=== PATIENT | female | born 1980 | race Caucasian/White ===

== ENCOUNTER → 2018-11-17 12:30 | Day surgery (SDC) | payer OTHER ==
[~2018-11-17 12:30] MED LIST: Buffered Lidocaine 1% SYRIN* 1 ML/SYRINGE INTRADERM ONE; Bupivacaine 0.5%* 50 ML VIAL ONE; Lactated Ringers 1000 ML Bag* 1,000 ML IV SCH; Lidocaine 1% INJ* 10 MG/ML 30 ML SDV ONE; Midazolam* 1 MG/ML 2 ML VIAL (2 MG) ONE; Midazolam* 1 MG/ML 5 ML VIAL (5 MG) ONE; Naloxone* 0.4 MG/ML 1 ML VIAL IV PRN; Ondansetron INJ* 2 MG/ML VIAL IV PRN; Ropivacaine* 2 MG/ML 20 ML VIAL (0.2%) ONE; ceFAZolin 2 GM PREMIX in ORs 2 GM/50 ML BAG IVPB ONE; fentaNYL* 50 MCG/ML 2 ML VIAL (100 MCG VIAL) IV PRN; fentaNYL* 50 MCG/ML 2 ML VIAL (100 MCG VIAL) ONE; oxyCODONE/Acetamin 5/325 MG* TAB PO PRN
[2018-11-17 17:43] VITALS: BP 116/74
--- NOTE | 2018-11-19 12:20 | OP ---
DATE OF PROCEDURE: 11/17/18 - MERGED WITH [facility] DATE OF : 82 PROCEDURE DONE BY: Dr. Urvashi Metcalf. ANESTHESIOLOGIST: Dr. Frankie Pineda. ANESTHESIA: Local MAC. FLUIDS: Please see anesthesia record. PREOPERATIVE DIAGNOSIS: Left lower extremity chronic regional pain syndrome. POSTOPERATIVE DIAGNOSIS: Left lower extremity chronic regional pain syndrome. PROCEDURE PERFORMED: Percutaneous placement of spinal cord stimulator leads with [employer] hardware. IMPLANTS: [employer]. SPINAL CORD STIMULATION TRIAL: PROCEDURE PERFORMED: Dual lead spinal cord stimulator trial. PROCEDURE DIAGNOSIS: PROCEDURE PERFORMED BY: Urvashi Metcalf MD FLUORO TIME: seconds. SEDATION: mg Versed. PHYSICAL EXAMINATION: The patient denies any new neurological or constitutional red flags. The patient denies any recent infection or current use of anticoagulants. Medications, as outlined on electronic medical record as well as allergies were reviewed with the patient. Skin of back with rash, lesions, or ulcers. PROCEDURE SUMMARY: The patient was seen and examined. Medical records were reviewed. The patient was informed of the risks, benefits, and alternatives to the procedure. Risks discussed included but were not limited to bleeding, infection, nerve damage or spinal headaches. The patient indicates understanding , all questions were answered, and consent obtained. The patient was then brought to the procedure room and placed in the prone position with arms to the side, making sure no pressure points were left unattended. Pressure points were checked and padded. Proceduralist was in continuous attendance. The area was then prepped and draped in the usual sterile manner, strict sterile technique was used. Final verification ("time out ") was performed to ensure the correct patient identity, site and agreement on the procedure to be done. The T12-L1 space was identified and confirmed with fluoroscopy. A left paramedian approach was used. mL of plain lidocaine 1% were used for local anesthesia of the skin. A 14-Gauge 3.5 inch Epidural Tuohy needle was inserted through the skin at the level one vertebral body below the aforementioned targeted interspace. The needle was advanced under fluoroscopy in a low transverse approach. The epidural space was identified and confirmed by fluoroscopy and easy thread of the SCS lead was performed. There was minimal change of resistance felt with the KAILEY syringe when trying to identify the epidural space, so the lead was used to confirm entry into the epidural space. The SCS single lead was easily threaded all the way up to superior endplate of the vertebral body and tested by our territory representative. The steering and maneuvering of the lead was relatively easy and uneventful without significant issue and care was taken to keep the lead just left of midline with the tip aiming slightly to the left. The initial placement of the lead provided stimulation coverage that was adequate for the patient's pain. We then directed our attention to the right sided lead using the same method as summarized above. At this point, the Tuohy needles were cautiously removed verifying under fluoroscopy there was no migration of the lead. The leads were secured with Steri- Strips and Tegaderm in a sterile fashion. The device was taped and secured to the patient's . The patient tolerated the procedure well and was taken to our post-procedure care unit for further recovery and assessment of stimulation coverage modifications were made by the territory representative. The patient will return for follow up and lead pull in one week. Orders for thoracic spine 2-view x-rays have been ordered for today. All fluoroscopic images were saved. Two leads were placed. There was some difficulty advancing placement of leads. Coude needles were used bilaterally. The T12-L1 interspace was entered with ease. The left lead was advanced midline up to the interlaminar space between T10 and T11 with the bottom of the lead resting over the bottom vertebral endplate of T12. The right lead was advanced through the right Tuohy and crossed over into more left side to rest again parallel in between the T10 and T11 interlaminar space with the bottom contacts resting over the interlaminar space between T12 and L1. The patient tolerated the procedure well as well as the sedation. She was brought back to the recovery room where further testing was performed by our [employer] territory representative. She achieved good coverage of her pain levels over the left lower extremity. She was subsequently discharged upon meeting anesthesia discharge criteria. [id number]/[id number] #: [id number]
== END | disposition home or self-care (01) ==
LOC: OR 12:30
PROVIDERS: ATTEND Anesthesiology Pain Medicine
DX: M79.662 Pain in left lower leg (principal); G89.4 Chronic pain syndrome; F32.9 Major depressive disorder, single episode, unspecified; F41.9 Anxiety disorder, unspecified; K21.9 Gastro-esophageal reflux disease without esophagitis
CPT/HCPCS: 76000; C1897; J0690; J2250; J2795; J3010